=== PATIENT | female | born 1945 | race Hispanic/Latino ===

== ENCOUNTER 2018-01-29 06:47 | Day surgery (SDC) | payer BC, MEDICARE ==
[2018-01-21 13:07] VITALS: BMI 27.7
[2018-01-29] MEDS ORDERED: Propofol 10 mg/ml Inj (20 ML) ONE (08:43)
[2018-01-29] MEDS ORDERED: ePHEDrine 50 mg/ml Inj ONE (09:10)
[2018-01-29] MEDS ORDERED: Sodium Chloride 0.9% 1,000 ML IV SCH (09:30)
[2018-01-29 12:27] VITALS: TEMP 97.4
[2018-01-29 12:33] VITALS: BP 114/53; PULSE 64; RESP 18; O2SAT 98
== END 2018-01-29 10:35 | disposition home or self-care (01) ==
LOC: ENDO 06:47
PROVIDERS: ATTEND Internal Medicine Gastroenterology
DX: D50.9 Iron deficiency anemia, unspecified (principal); R10.13 Epigastric pain; K57.30 Diverticulosis of large intestine without perforation or abscess without bleeding; K64.8 Other hemorrhoids; R13.10 Dysphagia, unspecified; K44.9 Diaphragmatic hernia without obstruction or gangrene; K25.9 Gastric ulcer, unspecified as acute or chronic, without hemorrhage or perforation; K22.10 Ulcer of esophagus without bleeding
CPT/HCPCS: 43239; 45378; 88305; 88312; 88342; J2001; J2704; J7030; J7040

== ENCOUNTER 2018-06-04 06:56 | Day surgery (SDC) | payer BC, MEDICARE ==
[2018-01-21 13:07] VITALS: BMI 27.7
[2018-06-04] MEDS ORDERED: Propofol 10 mg/ml Inj (20 ML) ONE ×2 (09:04→09:26)
[2018-06-04] MEDS ORDERED: Phenylephrine 10 mg/ml Inj ONE ×2 (09:28)
[2018-06-04] MEDS ORDERED: Sodium Chloride 0.9% 1,000 ML IV SCH (09:45)
[2018-06-04 10:02] VITALS: RESP 16
[2018-06-04 10:52] VITALS: PULSE 60
[2018-06-04 11:12] VITALS: BP 110/68; TEMP 97.5; O2SAT 97
== END 2018-06-04 11:11 | disposition home or self-care (01) ==
LOC: ENDO 06:56
PROVIDERS: ATTEND Internal Medicine Gastroenterology
DX: K22.10 Ulcer of esophagus without bleeding (principal); K44.9 Diaphragmatic hernia without obstruction or gangrene; I10 Essential (primary) hypertension
CPT/HCPCS: 43239; 88305; 88312; J2001; J2370; J2704; J7030; J7040